=== PATIENT | female | born 1965 | race Caucasian/White ===

== ENCOUNTER 2024-04-07 09:49 | Emergency (ER) | payer BC ==
[2024-04-07 11:30] LABS: Absolute Neutrophil Ct (ANC) 7.54 x10^3/uL (1.56-6.13); BASOPHIL % 0.4 % (0.1-1.2); Basophil (Absolute #) 0.04 x10^3/uL (0.01-0.08); Eosinophil % 0.8 % (0.7-5.8); Eosinophil (Absolute #) 0.08 x10^3/uL (0.04-0.36); Hematocrit 35.8 % (34.1-44.9); Hemoglobin 13.3 g/dL (11.2-15.7); IMMATURE GRAN # 0.03 x10^3u/L (0.001-0.031); IMMATURE GRAN % 0.3 % (0.001-0.429); Lymphocyte (Absolute #) 1.74 x10^3/uL (1.18-3.74); Lymphocytes % 17.6 % (19.3-51.7); Mean Cell Volume 82.3 fL (79.4-94.8); Mean Corpuscular Hemoglobin 30.6 pg (25.6-32.2); Mean Corpuscular Hgb Concent. 37.2 g/dL (32.2-35.5); Mean Platelet Volume 9.6 fL (9.4-12.3); Monocyte (Absolute #) 0.43 x10^3/uL (0.24-0.86); Monocytes % 4.4 % (4.7-12.5); Neutrophil % 76.5 % (34.0-71.1); Platelet Count 302 x10^3/uL (182-369); Red Blood Count 4.35 x10^6/uL (3.93-5.22); Red Cell Distribution Width 12.2 % (11.7-14.4); White Blood Count 9.9 x10^3/uL (3.98-10.04)
--- NOTE | 2024-04-07 11:30 | ERPHSYRPT ---
- History of Present Illness Source: patient Exam Limitations: no limitations Physician History: Right sided back pain. Patient states has been going on for several weeks. No falls no trauma. Patient states that she is visiting from [place]. Does not have a PCP here. She has not been to [facility] or any other urgent cares for evaluation. Presents today because it feels worse. No falls or trauma. No fever no chills. Patient is taking PO well. Same number of urinations and defecations. The patient has no signs of altered mental status, nuchal rigidity, signs of meningitis. The patient is up-to-date on all vaccinations. Allergies/Adverse Reactions: naproxen Allergy (Verified 04/07/24 11:06) Home Medications: Esomeprazole Magnesium [Nexium 24Hr] 20 mg PO DAILY 04/07/24 [History] - Nursing Vital Signs Nursing Vital Signs: Initial Vital Signs Temperature 97.9 F 04/07/24 11:07 Pulse Rate 91 H 04/07/24 11:07 Respiratory Rate 19 04/07/24 11:07 Blood Pressure 171/95 04/07/24 11:07 O2 Sat by Pulse Oximetry 100 04/07/24 11:07 Pain Scale Pain Intensity 10 - Physical Exam Comments: 04/07/24 11:30 Review of Systems Constitutional: Negative for fever. HENT: Negative for congestion. Respiratory: Negative for shortness of breath. Cardiovascular: Negative for chest pain. Gastrointestinal: Negative for abdominal pain. Genitourinary: Negative for dysuria. Musculoskeletal: Negative for back pain. Skin: Negative for rash. Neurological: Negative for headaches. Psychiatric/Behavioral: Negative for behavioral problems. All other systems reviewed and are negative. Physical Exam Vitals signs and nursing note reviewed. Constitutional: Appearance: Patient is well-developed. HENT: Head: Normocephalic and atraumatic. Eyes: Conjunctiva/sclera: Conjunctivae normal. Neck: Musculoskeletal: Normal range of motion. Trachea: No tracheal deviation. Cardiovascular: Rate and Rhythm: Normal rate. Pulmonary: Effort: Pulmonary effort is normal. No respiratory distress. Abdominal: Palpations: Abdomen is soft. Musculoskeletal: General: Minimal right flank tenderness to palpation. No overlying skin changes. No obvious deformity, sensation intact, 2+ capillary refill, 2 point tactile discrimination intact. 5 out of 5 strength. Full range of motion without pain. Compartments are soft, nontender. Overlying skin shows no tenting, bruising, ecchymosis. Skin: General: Skin is warm and dry. Neurological/ Psychiatric: Mental Status: Mental status, behavior, interaction with environment is appropriate for patient's age and condition - Course Nursing assessment & vital signs reviewed: Yes EKG Interpreted by Me: Sinus Rhythm Ordered Tests: Active Orders 24 hr Category Date Time Status IV Insertion STAT Care 04/07/24 11:17 Completed ABDOMEN AND PELVIS W/0 CONTRAS [CT] Stat Exams 04/07/24 11:16 Completed CBC W DIFF Stat Lab 04/07/24 11:25 Completed CMP Stat Lab 04/07/24 11:25 Completed CULTURE,URINE Stat Lab 04/07/24 11:33 Received LIPASE Stat Lab 04/07/24 11:25 Completed UA W/RFX UR CULTURE Stat Lab 04/07/24 11:33 Completed Lab/Rad Data: Laboratory Result Diagrams 04/07/24 11:25 04/07/24 11:25 Laboratory Results 04/07/24 04/07/24 04/07/24 Range/Units 12:23 11:33 11:25 WBC (3.98-10.04) x10^3/uL RBC (3.93-5.22) x10^6/uL Hgb (11.2-15.7) g/dL Hct (34.1-44.9) % MCV (79.4-94.8) fL MCH (25.6-32.2) pg MCHC (32.2-35.5) g/dL RDW (11.7-14.4) % Plt Count (182-369) x10^3/uL MPV (9.4-12.3) fL Gran % (34.0-71.1) % Immature Gran % (Auto) (0.001-0.429) % Nucleat RBC Rel Count (0.00-0.2) % Eos # (Auto) (0.04-0.36) x10^3/uL Immature Gran # (Auto) (0.001-0.031) x10^3u/L Absolute Lymphs (auto) (1.18-3.74) x10^3/uL Absolute Monos (auto) (0.24-0.86) x10^3/uL Absolute Nucleated RBC (0.00-0.012) x10^3u/L Lymphocytes % (19.3-51.7) % Monocytes % (4.7-12.5) % Eosinophils % (0.7-5.8) % Basophils % (0.1-1.2) % Absolute Granulocytes (1.56-6.13) x10^3/uL Basophils # (0.01-0.08) x10^3/uL Sodium 128 L (135-145) mmol/L Potassium 3.8 (3.5-5.1) mmol/L Chloride 93 L (98-107) mmol/L Carbon Dioxide 24 (22-30) mmol/L Anion Gap 14.4 (5-15) MEQ/L BUN 7 (7-17) mg/dL Creatinine 0.70 (0.52-1.04) mg/dL Estimated GFR 99.0 ML/MIN Glucose 233 H (74-106) mg/dL Hemoglobin A1c 6.95 H (4.5-6.0) % Calcium 10.3 H (8.4-10.2) mg/dL Total Bilirubin 1.10 (0.2-1.3) mg/dL AST 24 (14-36) U/L ALT 17 (0-35) U/L Alkaline Phosphatase 85 (38-126) U/L Serum Total Protein 7.8 (6.3-8.2) g/dL Albumin 4.5 (3.5-5.0) g/dL Lipase 54 (23-300) U/L Urine Color Yellow (Yellow) Urine Appearance Clear (Clear) Urine pH 6.5 (4.6-8.0) Ur Specific [place] 1.015 (1.005-1.030) Urine Protein Trace A (Negative) Urine Glucose (UA) 500 A (Negative) mg/dL Urine Ketones Negative (Negative) Urine Blood Negative (Negative) Urine Nitrite Negative (Negative) Urine Bilirubin Negative (Negative) Urine Urobilinogen 0.2 (0.2) mg/dL Ur Leukocyte Esterase Small A (Negative) U Hyaline Cast (Auto) NONE SEEN (0-2) /LPF Urine Microscopic RBC 0-2 (0-5) /HPF Urine Microscopic WBC 21-50 A (0-5) /HPF Ur Epithelial Cells None Seen (None Seen) /HPF Urine Bacteria None Seen (None Seen) /HPF Urine Culture Reflexed YES (NO) 04/07/24 Range/Units 11:25 WBC 9.9 (3.98-10.04) x10^3/uL RBC 4.35 (3.93-5.22) x10^6/uL Hgb 13.3 (11.2-15.7) g/dL Hct 35.8 (34.1-44.9) % MCV 82.3 (79.4-94.8) fL MCH 30.6 (25.6-32.2) pg MCHC 37.2 H (32.2-35.5) g/dL RDW 12.2 (11.7-14.4) % Plt Count 302 (182-369) x10^3/uL MPV 9.6 (9.4-12.3) fL Gran % 76.5 H (34.0-71.1) % Immature Gran % (Auto) 0.3 (0.001-0.429) % Nucleat RBC Rel Count 0.0 (0.00-0.2) % Eos # (Auto) 0.08 (0.04-0.36) x10^3/uL Immature Gran # (Auto) 0.03 (0.001-0.031) x10^3u/L Absolute Lymphs (auto) 1.74 (1.18-3.74) x10^3/uL Absolute Monos (auto) 0.43 (0.24-0.86) x10^3/uL Absolute Nucleated RBC 0.00 (0.00-0.012) x10^3u/L Lymphocytes % 17.6 L (19.3-51.7) % Monocytes % 4.4 L (4.7-12.5) % Eosinophils % 0.8 (0.7-5.8) % Basophils % 0.4 (0.1-1.2) % Absolute Granulocytes 7.54 H (1.56-6.13) x10^3/uL Basophils # 0.04 (0.01-0.08) x10^3/uL Sodium (135-145) mmol/L Potassium (3.5-5.1) mmol/L Chloride (98-107) mmol/L Carbon Dioxide (22-30) mmol/L Anion Gap (5-15) MEQ/L BUN (7-17) mg/dL Creatinine (0.52-1.04) mg/dL Estimated GFR ML/MIN Glucose (74-106) mg/dL Hemoglobin A1c (4.5-6.0) % Calcium (8.4-10.2) mg/dL Total Bilirubin (0.2-1.3) mg/dL AST (14-36) U/L ALT (0-35) U/L Alkaline Phosphatase (38-126) U/L Serum Total Protein (6.3-8.2) g/dL Albumin (3.5-5.0) g/dL Lipase (23-300) U/L Urine Color (Yellow) Urine Appearance (Clear) Urine pH (4.6-8.0) Ur Specific [place] (1.005-1.030) Urine Protein (Negative) Urine Glucose (UA) (Negative) mg/dL Urine Ketones (Negative) Urine Blood (Negative) Urine Nitrite (Negative) Urine Bilirubin (Negative) Urine Urobilinogen (0.2) mg/dL Ur Leukocyte Esterase (Negative) U Hyaline Cast (Auto) (0-2) /LPF Urine Microscopic RBC (0-5) /HPF Urine Microscopic WBC (0-5) /HPF Ur Epithelial Cells (None Seen) /HPF Urine Bacteria (None Seen) /HPF Urine Culture Reflexed (NO) - Progress Progress: improved Progress Note: 04/07/24 11:30 Differential diagnosis includes kidney stone, compression fracture, infection, UTI, triple AAA - basic labs including: CBC, lipase, CMP, UA - insert IV for symptom management - consider imaging: CT ab/pelvis or U/S Reevaluation Patient feels improved here. CT scan shows no obvious abnormalities. No kidney stones, other sinister pathology. Patient did have an elevated blood glucose without signs of DKA. She also had glucose in her urine. Likely related to diabetes. Patient states that she has no history of diabetes. Therefore this could be new onset diabetes or she was previously prediabetic. Given all of this I did recommend that patient follows up closely with a primary care doctor. Patient is visiting from [place]. Therefore we did give her a list of primary care doctors and [facility] she can follow-up with. Patient should follow-up closely, return here sooner for any new or changing symptoms. Should she not get to see her PCP in [place] she should see one of the primary care doctors we provided her with. She may return here at any point in time should she not get into a PCP. Counseled pt/family regarding: lab results, diagnosis, need for follow-up, rad results - Departure Departure Disposition: Home Clinical Impression: Right flank discomfort, Hyperglycemia Condition: Stable Critical Care Time: No Referrals: TY GRIMALDO DO [ACTIVE STAFF] - Follow up/PCP as directed DOCTOR,NO FAMILY [Primary Care Provider] - Follow up/PCP as directed Instructions: Low Back Pain (DC) Prescriptions: Cyclobenzaprine HCl 10 mg [Flexeril 10 MG] 10 mg PO TID #12 tablet
[2024-04-07 11:31] VITALS: TEMP 97.9
[2024-04-07 11:42] LABS: ALBUMIN 4.5 g/dL (3.5-5.0); ANION GAP 14.4 MEQ/L (5-15); BILIRUBIN,TOTAL 1.1 mg/dL (0.2-1.3); Calcium 10.3 mg/dL (8.4-10.2); Creatinine 1 0.7 mg/dL (0.52-1.04); Potassium 3.8 mmol/L (3.5-5.1); Total Protein 7.8 g/dL (6.3-8.2)
[2024-04-07 11:42] LABS: Appearance Clear (Clear); Bacteria None Seen /HPF (None Seen); Bilirubin Negative (Negative); Blood Negative (Negative); Epithelial Cells None Seen /HPF (None Seen); Glucose, Urine 500 mg/dL (Negative); Hyaline Casts NONE SEEN /LPF (0-2); Ketones Negative (Negative); Leukocyte Esterase Small (Negative); Nitrite Negative (Negative); Ph 6.5 (4.6-8.0); Protein,Urine Dip Trace (Negative); RBC 0-2 /HPF (0-5); Specific Gravity 1.015 (1.005-1.030); Urobilinogen 0.2 mg/dL (0.2); WBC 21-50 /HPF (0-5)
[2024-04-07 11:44] VITALS: PULSE 96
[2024-04-07 12:08] VITALS: BP 199/81; RESP 20; O2SAT 100
--- NOTE | 2024-04-07 12:59 | XRAY ---
Indication: Right flank pain 2 weeks. Multiple contiguous axial images obtained through the abdomen and pelvis without contrast using renal stone protocol. Comparison: None Lung bases clear with incidental tiny left lower lobe calcified granuloma. Heart not enlarged. Small hiatal hernia. No renal calculus or evidence for obstructive uropathy in either system. Diffuse colonic radiopacities either ingested medication/bismuth versus barium. Stomach and bowel loops appear nonobstructed. Appendectomy and cholecystectomy reported. 1.2 cm left adrenal adenoma. No free fluid/air. Remaining liver, pancreas, spleen, adrenal glands, kidneys, ureters, bladder, and uterus are unremarkable for noncontrast exam. Minimal scattered aortoiliac calcifications without AAA. Osseous structures intact with mild degenerative changes throughout spine, mild levoscoliosis centered at L2, and mild degenerative changes both hips. Impression: 1. Negative renal calculus or evidence for obstructive uropathy. 2. Chronic findings including left lower lobe calcified granuloma, hiatal hernia, left adrenal adenoma, arteriosclerotic disease, and chronic bony findings.
== END 2024-04-07 13:25 | disposition home or self-care (01) ==
LOC: ED 09:49
DX: R10.31 Right lower quadrant pain (principal); M54.9 Dorsalgia, unspecified; R73.9 Hyperglycemia, unspecified
CPT/HCPCS: 36415; 74176; 80053; 81001; 83036; 83690; 85025; 87086; 99283; 99284